=== PATIENT | male | born 1950 | race Two or more races ===

== ENCOUNTER 2022-07-16 11:48 | Outpatient (CLI) | payer OTHER | END 2022-07-16 11:50 | disposition home or self-care (01) | LOC: LAB 11:48 | PROVIDERS: ATTEND Urology | DX: R97.20 Elevated prostate specific antigen [PSA] (principal) ==

== ENCOUNTER 2022-10-05 07:25 | Outpatient (CLI) | payer OTHER | END 2022-10-05 07:38 | disposition home or self-care (01) | LOC: SONOGRAMA 07:25 | PROVIDERS: ATTEND Urology | DX: R97.20 Elevated prostate specific antigen [PSA] (principal); N41.1 Chronic prostatitis; D29.1 Benign neoplasm of prostate; C61 Malignant neoplasm of prostate ==